=== PATIENT | male | born 1970 | race Caucasian/White ===

== ENCOUNTER → 2016-07-21 | Day surgery (SDC) | payer OTHER ==
[~2016-07-21] VITALS: Ht 180.3 cm; Wt 92.9 kg
[~2016-07-21] MED LIST: *morphine SULFATE 8 MG/ML PERIprocedure ONLY ONE; ACETAMINOPHEN 1000 MG/100 ML VIAL IV ONE; ACETAMINOPHEN 1000 MG/100 ML VIAL IV SCH; ASPI1TAB69 PO; ATOR40TA16 PO; BUPIVACAINE HCL PF 0.25% 30 ML VIAL ONE; BUPIVACAINE LIPOSOME PF 1.3% 20 ML VIAL ONE; BUPIVACAINE/EPINEPHRINE 0.25% PF 10 ML VIAL ONE; DEXAMETHASONE SOD PHOS 4 MG/ML VIAL ONE; DO NOT ADM ANY ANTICOAGULANT DRUGS XX PRN; FAMOTIDINE 20 MG/2 ML VIAL ONE; INSULIN HUMAN REGULAR 1,000 UNITS/10 ML VIAL SQ PRN; KETOROLAC TROMETHAMINE 60 MG/2 ML (IM) VIAL IM ONE; LACTATED RINGER'S 1000 ML INJ 1,000 ML IV ONE; LACTATED RINGER'S 1000 ML IV SCH; LOSA100T PO; LOSA50TA PO; METOPROLOL TARTRATE 25 MG TAB PO PRN; MIDAZOLAM HCL 2 MG/2 ML VIAL ONE; MORPHINE SULFATE 4 MG/ML INJ IV PRN; NEOSTIGMINE 3 MG/3 ML SYR IV ONE; ONDANSETRON HCL 4 MG/2 ML VIAL IV PUSH ONE; ONDANSETRON HCL 4 MG/2 ML VIAL IV PUSH PRN; OXYC1TAB63 PO; PROPOFOL 200 MG/20 ML AMP IV ONE; SODIUM CHLORID 0.9% 500 ML IV SCH; ceFAZolin 2 GM PREMIX 50 ML IV SCH; ceFAZolin 2 GM PREMIX 50 ML ONE; ePHEDrine/NS 25 MG/5 ML SYR IV ONE; fentaNYL CITRATE 250 MCG/5 ML AMP ONE; oxyCODONE/ACETAMINOPHEN 5 MG/325 MG TAB PO PRN
[2016-07-21 06:42] VITALS: BP 159/94; PULSE 74; RESP 16; TEMP 98.1; O2SAT 99
[2016-07-21 06:53] LABS: AUTOMATED NEUTROPHIL # 3.9 TH/MM3 (1.8-7.7); BASOPHIL % 0.5 % (0.0-2.0); EOSINOPHIL # 0.1 TH/MM3 (0-0.4); EOSINOPHIL % 1.2 % (0.0-4.0); HEMATOCRIT 42.5 % (39.0-51.0); HEMO FLAGS DIFF FINAL; LYMPH % 19.3 % (9.0-44.0); MEAN CELL VOLUME 82.8 FL (80.0-100.0); MEAN CORPUSCULAR HEMOGLOBIN 28.4 PG (27.0-34.0); MEAN CORPUSCULAR HGB CONC 34.3 % (32.0-36.0); MONO % 6.2 % (0.0-8.0); NEUT % 72.8 % (16.0-70.0); PLATELET COUNT 233 TH/MM3 (150-450); RED BLOOD COUNT 5.14 MIL/MM3 (4.50-5.90); RED CELL DISTRIBUTION WIDTH 13.8 % (11.6-17.2); WHITE BLOOD COUNT 5.4 TH/MM3 (4.0-11.0)
--- NOTE | 2016-07-21 10:35 | PD.OP ---
cc: Simth Ibanez MD Operative Report Date of Surgery: Jul 21, 2016 Preoperative Diagnosis: (1) Umbilical hernia, incarcerated Postoperative Diagnosis: (1) Umbilical hernia, incarcerated Procedure: Laparoscopic umbilical hernia repair with mesh Anesthesia: DUDLEY Surgeon: Smith Ibanez Power Distribution Engineer(s): Anai Robles student LAB DIRECTOR Operation and Findings: EBL: 10 cc Operative findings: The patient had a 2 x 2 cm umbilical hernia incarcerated with preperitoneal and omental fat. Procedure in detail: The patient was taken to the operating room and placed supine position. Gen. endotracheal anesthesia was induced. The abdomen was prepped and draped in usual sterile fashion, Ioban was placed and a surgical timeout was performed to verify correct patient procedure and site. Appropriate perioperative antibiotics were administered. In the left upper abdomen 5 mm incision was made after infiltration with local anesthetic and a 5 mm port placed using the direct Optiview technique. The abdomen was insufflated to 15 mmHg which the patient tolerated well. Another 5 mm port was placed in the left lateral abdomen and one in the left lower quadrant. There was omentum adherent and incarcerated in a 2 x 2 centimeter umbilical defect. This was reduced bluntly. The fatty tissue along the anterior abdominal wall and peritoneum was divided and taken down using the Harmonic scalpel for an area approximately 10 cm circumferentially around the umbilical defect. A right lower quadrant 5 mm port was placed to facilitate dissection. A portion of the falciform ligament was taken down. A 6 x 8" Bard ventral light mesh using the echo deployment system was chosen. It was placed through the left upper quadrant port which was changed to a 12 mm balloon port. The echo deployment system was inflated and the mass was oriented with the longer and vertical. It was very good overlap of all edges of the fascial defect. The peritoneum was taken down a little farther circumferentially. The mesh was secured circumferentially using the pro-tack tacking device. The inflation device was then removed. The absorbatack tacker was then used to provide further fixation around the edge of the mesh as well as in the middle of the mesh. Peritoneum which was partially taken down was tacked back up to the abdominal wall to partially cover the mesh.. At this point the abdomen was allowed to desufflate and trochars were removed. The skin was closed with subcuticular 4-0 Monocryl suture as well as Dermabond. An abdominal binder was placed. The patient tolerated the procedure well was extubated and taken to PACU in stable condition. Smith Ibanez MD Jul 21, 2016 10:35
[2016-07-21 12:18] VITALS: BP 144/86; PULSE 77; RESP 16; TEMP 98.6; O2SAT 98
== END | disposition home or self-care (01) ==
LOC: HSDC 05:48
PROVIDERS: ATTEND Surgery
DX: K42.0 Umbilical hernia with obstruction, without gangrene (principal)
CPT/HCPCS: 00752; 49653; 64488; 85025; C1781; C9290; J0131; J0690; J1100; J1885; J2250; J2270; J2405; J2710; J3010; J7120